=== PATIENT | female | born 1975 | race Two or more races ===

== ENCOUNTER 2016-12-14 05:55 | Day surgery (SDC) | payer OTHER ==
--- NOTE | 2016-12-10 11:45 | HP ---
LIANA CARTER [id number] DATE OF ADMISSION: December 14, 2106 PREOPERATIVE DIAGNOSES: 1. Multiparity. 2. Desires permanent sterilization. PROCEDURE: Laparoscopic bilateral tubal ligation. HISTORY OF PRESENT ILLNESS: Patient is a 41-year-old 5, para 5, who is status post recent vaginal delivery in September of 2016. A tubal ligation was not able to be done at that time due to an upper respiratory illness. However, the patient has recovered and now desires permanent sterilization. PAST OB HISTORY: Patient has had 5 previous known vaginal deliveries. PAST MEDICAL HISTORY: Includes: 1. Morbid obesity. 2. History of induced hypertension. 3. Anemia. PAST SURGICAL HISTORY: 1. Laparoscopic cholecystectomy. 2. Open appendectomy at 16 years old. MEDICATIONS: None. ALLERGIES TO MEDICATIONS: NO KNOWN DRUG ALLERGIES. PHYSICAL EXAM: GENERAL: Patient is in no apparent distress. She is alert and oriented and obese. HEART: Regular rate and rhythm. LUNGS: Clear to auscultation bilaterally. ABDOMEN: Nontender, nondistended. There are previous laparoscopic and Pfannenstiel incisions noted. Her abdomen is obese. PELVIC: Vagina is normal. External genitalia is normal. Cervix and uterus are normal and nontender, and there are no adnexal masses. ASSESSMENT: This is a 41-year-old 5, para 5, who desires permanent sterilization. PLAN: We will perform a laparoscopic bilateral tubal ligation with Filshie clips. The risks of regret, and ectopic have been reviewed. I have also reviewed surgical risks of the procedure including bleeding, infection or injury to bowel, bladder or other organs. Preoperative instructions and postoperative expectations have been reviewed. We will check a CBC and an HCG prior to the procedure.
[~2016-12-14 05:55] MED LIST: IV START KIT ONE; LACTATED RINGERS 1,000 ML ONE
[2016-12-14] MEDS ORDERED: PROPOFOL 20 ML IV ONE (06:37)
[2016-12-14] MEDS ORDERED: LIDOCAINE 2% (PRES FREE) 5 ML VIAL ONE (06:37)
[2016-12-14] MEDS ORDERED: MIDAZOLAM HCL 1 MG/ML 2ML VIAL ONE (06:37)
[2016-12-14] MEDS ORDERED: ROCURONIUM BROMIDE 10 MG/ML DOSE IV ONE (06:37)
[2016-12-14] MEDS ORDERED: FENTANYL 5 ML ONE (06:37)
[2016-12-14] MEDS ORDERED: LIDOCAINE 1%/EPI (MULTI DOSE) 20 ML VIAL ONE (07:12)
[2016-12-14] MEDS ORDERED: SODIUM CHLORIDE 0.9% FLUSH 10 ML ONE (07:12)
[2016-12-14] MEDS ORDERED: NALOXONE HCL 0.4 MG/ML VIAL IV PRN (08:30)
[2016-12-14] MEDS ORDERED: LACTATED RINGERS 1,000 ML IV SCH ×2 (08:30→09:30)
[2016-12-14] MEDS ORDERED: HYDROMORPHONE HCL 1 MG/ML SYRINGE IV PRN (08:30)
[2016-12-14] MEDS ORDERED: ONDANSETRON 4 MG/2ML 2 ML VIAL IV PRN ×2 (08:30→09:30)
[2016-12-14] MEDS ORDERED: MEPERIDINE 25 MG/ML SYRINGE IV PRN (08:30)
[2016-12-14] MEDS ORDERED: ATROPINE SULFATE 0.4 MG/1 ML VIAL IV PRN (08:30)
[2016-12-14] MEDS ORDERED: PROMETHAZINE HCL 25 MG/ML VIAL IM PRN (08:30)
[2016-12-14] MEDS ORDERED: FENTANYL 100 MCG/2 ML VIAL ONE (09:11)
[2016-12-14] MEDS: FENTANYL 100 MCG/2 ML VIAL IV PRN ×2 (09:13→09:29)
[2016-12-14] MEDS ORDERED: DIPHENHYDRAMINE HCL 50 MG/1 ML VIAL IV PRN (09:30)
[2016-12-14] MEDS ORDERED: OXYCODONE/ACETAMINOPHEN 5/325 MG TABLET PO PRN (09:30)
[2016-12-14] MEDS ORDERED: ACETAMINOPHEN 325 MG TABLET PO PRN (09:30)
--- NOTE | 2016-12-14 09:42 | OP ---
Giselle Palacios [id number] DATE OF PROCEDURE: 12/14/2016 PREOPERATIVE DIAGNOSIS: Sterilization. POSTOPERATIVE DIAGNOSIS: Sterilization. PROCEDURE: Laparoscopic bilateral tubal ligation. SURGEON: Bonilla Samuel M.D. ANESTHESIA: General. ESTIMATED BLOOD LOSS: 100 mL. OPERATIVE FINDINGS: Include intraabdominal adhesions of the omentum to the anterior abdominal wall as well as pelvic adhesions on the right lower quadrant and right adnexa. OPERATIVE COURSE: The patient was taken to the operating room and placed under general anesthesia. The patient was placed in the low lithotomy and prepped and draped in a sterile fashion. Bladder was emptied with a straight catheter. A bivalve speculum was then placed and the anterior aspect of the cervix was identified and grasped with a single tooth tenaculum and a uterine manipulator was then placed. The speculum was then removed. Attention was then paid to the abdomen. Local lidocaine with epinephrine was injected locally at the subumbilical and suprapubic area. A 11 mm vertical incision was made in the subumbilicus and this was then tented and a Varess needle was then placed, however, due to the patient's obesity intraabdominal placement could not be achieved therefore, the port with scope was then placed and a 11 mm port was then placed under direct visualization. The abdomen was then insufflated. Intraabdominal survey was then made. There appeared to be adhesions of the omentum to the anterior abdominal wall. The right adnexa appeared to have dense adhesions of the tube and ovary as well, however, the tube can easily be identified. The left tube was also identified as well. A second 5 mm port was then placed in the midline suprapubic area and this was placed under direct visualization. The uterus was then elevated and the patient was then placed in Trendelenburg. The left tube was identified and a Filshie clip was then placed in the mid isthmic area. The right tube was also identified and a Filshie clip was also placed in the mid isthmic area as well. Photographs were taken at this time. All instruments were then removed. The abdomen was then desufflated. The ports were then removed. The umbilical incision was then closed with 0 Vicryl and 3-0 Monocryl and a suprapubic incision was then closed with 3-0 Monocryl. The uterine manipulator was then removed. At this point, the patient exhibited heavy bleeding vaginally and there was some difficulty visualizing cervix secondary to the patient's body habitus, however, subsequently he was able to be visualized. The cervix was grasped with a ring forceps and cauterized at the areas of the tenaculum insertion. There was good hemostasis observed. Patient was then recovered to the recovery room in stable condition. JOB: [id number]
[2016-12-14] MEDS ORDERED: OXYCODONE/ACETAMINOPHEN 5/325 MG TABLET ONE (09:47)
[2016-12-14] MEDS ORDERED: HYDROMORPHONE HCL 1 MG/ML SYRINGE IV ONE (09:53)
== END 2016-12-14 13:11 | disposition home or self-care (01) ==
LOC: SDC 05:55
PROVIDERS: ATTEND Obstetrics & Gynecology
PROC: 0UL74CZ Occlusion of Bilateral Fallopian Tubes with Extraluminal Device, Percutaneous Endoscopic Approach (ICD-10-PCS; principal; 2016-12-14)
DX: Z30.2 Encounter for sterilization (principal); E66.01 Morbid (severe) obesity due to excess calories; Z68.43 Body mass index [BMI] 50.0-59.9, adult; N73.6 Female pelvic peritoneal adhesions (postinfective); K66.0 Peritoneal adhesions (postprocedural) (postinfection); D64.9 Anemia, unspecified
CPT/HCPCS: 58671; J1170; J3010 ×2; A9270; J2250; J7120

== ENCOUNTER 2017-01-09 07:58 | Emergency (ER) | payer OTHER ==
[2017-01-09] MEDS ORDERED: ACETAMINOPHEN 325 MG TABLET ONE (08:15)
== END 2017-01-09 08:23 | disposition home or self-care (01) ==
LOC: ED 07:58
DX: M25.561 Pain in right knee (principal)
CPT/HCPCS: 99282 ×2; A9270